=== PATIENT | male | born 1950 | race Caucasian/White ===

== ENCOUNTER 2020-10-07 12:14 | Emergency (ER) | payer MEDICARE, BC ==
[~2020-10-07] VITALS: Ht 185.4 cm; Wt 101.7 kg
[2020-10-07 12:22] VITALS: BP 150/81
[2020-10-07] MEDS ORDERED: LIDOcaine 1% 30ml preserv. free vial ONE (18:00)
== END 2020-10-07 14:37 | disposition home or self-care (01) ==
LOC: ER 12:15
DX: S61.412A Laceration without foreign body of left hand, initial encounter (principal); I10 Essential (primary) hypertension; Z98.890 Other specified postprocedural states; W22.8XXA Striking against or struck by other objects, initial encounter; Y93.89 Activity, other specified; Y92.89 Other specified places as the place of occurrence of the external cause; Y99.8 Other external cause status
CPT/HCPCS: 12001; 73140; 99283; J2001

== ENCOUNTER 2020-11-23 20:09 | Emergency (ER) | payer BC, MEDICARE ==
[~2020-11-23] VITALS: Ht 185.4 cm; Wt 102.5 kg
[2020-11-23] MEDS ORDERED: acetaminophen 325mg tablet PO ONE (22:10)
[2020-11-23 22:44] VITALS: BP 133/87
== END 2020-11-23 22:47 | disposition home or self-care (01) ==
LOC: ER 20:10
DX: R07.89 Other chest pain (principal); I10 Essential (primary) hypertension; Z98.890 Other specified postprocedural states
CPT/HCPCS: 71045; 93005; 99283

== ENCOUNTER 2021-02-10 13:18 | Inpatient (IN) | payer MEDICARE, BC ==
[~2021-02-10] VITALS: Ht 185.4 cm; Wt 102.8 kg
[2021-02-10] MEDS: heparin 25,000 UNIT/250ml bag 250 ML IV SCH (14:50)
[2021-02-10] MEDS ORDERED: heparin 10,000 units/1 ML INJ IV ONE ×2 (14:50)
[2021-02-10] MEDS ORDERED: heparin 10,000 units/1 ML INJ IV PRN (14:50)
[2021-02-10] MEDS ORDERED: iohexol 350MG/ML 100ml bottle IV ONE (14:53)
[2021-02-10 15:08] LABS: BASOPHILS % (AUTO) 0.3 % (0-1); EOSINOPHILS % (AUTO) 0.5 % (0-6); HEMOGLOBIN 13.6 g/dl (14.0-17.9); LYMPHOCYTES # (AUTO) 1.2 X10'3 (1.1-4.8); LYMPHOCYTES % (AUTO) 15.8 % (21-51); MEAN CORPUSCULAR HEMOGLOBIN 29.7 PG (27.0-31.0); MEAN CORPUSCULAR HGB CONC 33.3 g/dL (33.0-36.5); MEAN CORPUSCULAR VOLUME 89.3 FL (78-98); MEAN PLATELET VOLUME 7.8 FL (7.4-10.4); MONOCYTES # (AUTO) 0.5 X10'3 (0-0.9); MONOCYTES % (AUTO) 6.7 % (2-12); NEUTROPHILS # (AUTO) 5.9 X10'3 (1.8-7.7); NEUTROPHILS % (AUTO) 76.7 % (42-75); PLATELET COUNT 218 X10'3 (140-440); RED BLOOD COUNT 4.59 X10'6 (4.70-6.10); RED CELL DISTRIBUTION WIDTH 15.1 % (11.5-14.5); WHITE BLOOD COUNT 7.8 X10'3 (4.5-11.0)
[2021-02-10 15:22] LABS: ALANINE AMINOTRANSFERASE 22 U/L (12-78); ALBUMIN 3.6 G/DL (3.4-5.0); ALKALINE PHOSPHATASE 91 IU/L (46-116); ANION GAP 10 (8-16); ASPARTATE AMINO TRANSFERASE 15 U/L (10-37); BILIRUBIN,TOTAL 0.5 MG/DL (0.1-1.0); BLOOD UREA NITROGEN 18 MG/DL (7-18); BUN/CREATININE RATIO 18.8 (5.4-32.0); CALCIUM 8.6 MG/DL (8.5-10.1); CHLORIDE 109 MMOL/L (99-107); CREATININE 0.96 MG/DL (0.60-1.10); GLUCOSE 94 MG/DL (70-104); POTASSIUM 4.3 MMOL/L (3.5-5.1); SODIUM 146 MMOL/L (135-145); TOTAL CARBON DIOXIDE 27.1 MMOL/L (24-32); TOTAL PROTEIN 7.2 G/DL (6.4-8.2); eGFR 78 ML/MIN
[2021-02-10] MEDS ORDERED: LOSA100T57 PO (16:49)
[2021-02-10] MEDS ORDERED: METO-411 PO (16:49)
[2021-02-10] MEDS ORDERED: FLO0.4C PO (16:49)
[2021-02-10] MEDS ORDERED: AMLO5TAB16 PO (16:49)
[2021-02-10] MEDS ORDERED: SILD100T70 PO (16:51)
[2021-02-10] MEDS ORDERED: ondansetron/PF 4mg/2ml inj IV PRN (17:00)
[2021-02-10] MEDS ORDERED: morphine 2 MG/ML inj. syringe IV PRN ×2 (17:00)
[2021-02-10] MEDS ORDERED: magnesium hydroxide 30ml (MOM) UD suspension PO PRN (17:00)
[2021-02-10] MEDS: normal saline 1000ml 1,000 ML IV SCH (17:00)
[2021-02-10] MEDS ORDERED: mag hydrox/Alum hydrox/simeth 30ml oral suspension PO PRN (17:00)
[2021-02-10] MEDS ORDERED: SILDENAFIL CITRATE PO PRN (17:50)
[2021-02-10] MEDS: tamsulosin 0.4mg capsule PO SCH (18:40)
[2021-02-10] MEDS: docusate sod 100mg capsule PO SCH (19:37)
--- NOTE | 2021-02-10 21:58 | NUR ---
PTT ON HOLD. PTT >139. DR THOMPSON NOTIFIED. WILL ORDER 2 HR PTT ONCE REDUCED GTT IS STERTED.
[2021-02-11] VITALS (14 sets, daily range): BP systolic 111–159; BP diastolic 62–104
[2021-02-11 02:39] LABS: BASOPHILS % (AUTO) 0.4 % (0-1); EOSINOPHILS # (AUTO) 0.1 X10'3 (0-0.9); HEMOGLOBIN 13.4 g/dl (14.0-17.9); MEAN PLATELET VOLUME 8.2 FL (7.4-10.4); MONOCYTES # (AUTO) 0.6 X10'3 (0-0.9); NEUTROPHILS % (AUTO) 67.2 % (42-75)
[2021-02-11 02:40] LABS: EOSINOPHILS % (AUTO) 1.9 % (0-6); HEMATOCRIT 40.8 % (42.0-52.0); LYMPHOCYTES # (AUTO) 1.5 X10'3 (1.1-4.8); LYMPHOCYTES % (AUTO) 22.1 % (21-51); MEAN CORPUSCULAR HEMOGLOBIN 29.4 PG (27.0-31.0); MEAN CORPUSCULAR HGB CONC 32.9 g/dL (33.0-36.5); MEAN CORPUSCULAR VOLUME 89.5 FL (78-98); MONOCYTES % (AUTO) 8.4 % (2-12); NEUTROPHILS # (AUTO) 4.6 X10'3 (1.8-7.7); PLATELET COUNT 201 X10'3 (140-440); RED BLOOD COUNT 4.56 X10'6 (4.70-6.10); WHITE BLOOD COUNT 6.8 X10'3 (4.5-11.0)
[2021-02-11 02:47] LABS: ALBUMIN 3.2 G/DL (3.4-5.0); ANION GAP 9 (8-16); BLOOD UREA NITROGEN 17 MG/DL (7-18); BUN/CREATININE RATIO 19.5 (5.4-32.0); CALCIUM 8.2 MG/DL (8.5-10.1); CHLORIDE 111 MMOL/L (99-107); CREATININE 0.87 MG/DL (0.60-1.10); GLUCOSE 96 MG/DL (70-104); POTASSIUM 3.5 MMOL/L (3.5-5.1); SODIUM 146 MMOL/L (135-145); TOTAL CARBON DIOXIDE 26.3 MMOL/L (24-32); eGFR 87 ML/MIN
[2021-02-11] MEDS: normal saline 1000ml 1,000 ML IV SCH ×3 (03:14→22:11)
[2021-02-11] MEDS: heparin 25,000 UNIT/250ml bag 250 ML IV SCH ×3 (04:00→19:08)
[2021-02-11] MEDS ORDERED: losartan 50mg tablet PO SCH ×2 (08:00→20:00)
[2021-02-11] MEDS ORDERED: metoprolol succinate 25mg (24-HOUR) SR. Tablet PO SCH ×2 (08:00→20:00)
[2021-02-11] MEDS ORDERED: amLODIPine 5mg tablet PO SCH ×2 (08:00→20:00)
[2021-02-11] MEDS: docusate sod 100mg capsule PO SCH ×2 (08:00→22:06)
[2021-02-11] MEDS: tamsulosin 0.4mg capsule PO SCH (08:00)
[2021-02-11] MEDS ORDERED: midazolam 1 mg/ML 2ml injection ONE ×3 (09:41→11:22)
[2021-02-11] MEDS ORDERED: LIDOcaine 1%/PF 5ML 10 MG/ML VIAL ONE (09:41)
[2021-02-11] MEDS ORDERED: iohexol 300mg/ml 100ml inj. ONE (09:42)
[2021-02-11] MEDS ORDERED: fentaNYL/PF 50MCG/1 ML 2ML syringe ONE ×2 (09:42→11:04)
[2021-02-11] MEDS ORDERED: heparin 1,000 UNITS/NS 500ml 500 ML ONE (09:42)
--- NOTE | 2021-02-11 10:13 | NUR ---
0800 medications held until after surgery
[2021-02-11] MEDS ORDERED: ondansetron/PF 4mg/2ml inj ONE ×2 (10:26→12:46)
[2021-02-11] MEDS ORDERED: diphenhydrAMINE 50 mg/ml inj ONE (10:27)
[2021-02-11] MEDS ORDERED: heparin 1,000unit/ml 10ml vial 10 ML ONE (10:57)
[2021-02-11] MEDS ORDERED: protamine sulfate 10mg/ml inj. ONE (12:06)
--- NOTE | 2021-02-11 13:22 | NUR ---
Dr. Felipe will: Blayne Herron [id number]: Pt just arrived to floor. [id number]
--- NOTE | 2021-02-11 15:59 | NUR ---
Dr. Wang pagegaurav: Blayne Herron [id number]: Critical PTT 130. will stop heparin gtt per protocol for 120min. [id number]
--- NOTE | 2021-02-11 18:01 | NUR ---
Dr. Wang paged: Blayne Herron [id number]: Pt would like to take BP meds tonight. Can they be changed to 1999? [id number]
[2021-02-11] MEDS: acetaminophen 325mg tablet PO PRN (22:09)
[2021-02-12 02:00] VITALS: BP 98/46
[2021-02-12 03:03] LABS: BASOPHILS % (AUTO) 0.3 % (0-1); EOSINOPHILS # (AUTO) 0.1 X10'3 (0-0.9); EOSINOPHILS % (AUTO) 1.4 % (0-6); HEMATOCRIT 38.4 % (42.0-52.0); HEMOGLOBIN 12.8 g/dl (14.0-17.9); LYMPHOCYTES # (AUTO) 1.3 X10'3 (1.1-4.8); LYMPHOCYTES % (AUTO) 18.8 % (21-51); MEAN CORPUSCULAR HEMOGLOBIN 29.6 PG (27.0-31.0); MEAN CORPUSCULAR HGB CONC 33.3 g/dL (33.0-36.5); MEAN PLATELET VOLUME 8.1 FL (7.4-10.4); MONOCYTES # (AUTO) 0.5 X10'3 (0-0.9); MONOCYTES % (AUTO) 7.5 % (2-12); NEUTROPHILS # (AUTO) 4.8 X10'3 (1.8-7.7); PLATELET COUNT 188 X10'3 (140-440); RED BLOOD COUNT 4.31 X10'6 (4.70-6.10); RED CELL DISTRIBUTION WIDTH 15.2 % (11.5-14.5); WHITE BLOOD COUNT 6.7 X10'3 (4.5-11.0)
[2021-02-12 03:15] LABS: ALBUMIN 2.9 G/DL (3.4-5.0); ANION GAP 7 (8-16); BLOOD UREA NITROGEN 15 MG/DL (7-18); CALCIUM 8.1 MG/DL (8.5-10.1); CHLORIDE 111 MMOL/L (99-107); CREATININE 0.94 MG/DL (0.60-1.10); GLUCOSE 92 MG/DL (70-104); POTASSIUM 3.7 MMOL/L (3.5-5.1); SODIUM 145 MMOL/L (135-145); TOTAL CARBON DIOXIDE 27.2 MMOL/L (24-32); eGFR 80 ML/MIN
[2021-02-12] MEDS: heparin 25,000 UNIT/250ml bag 250 ML IV SCH (03:41)
[2021-02-12] MEDS: acetaminophen 325mg tablet PO PRN (05:04)
--- NOTE | 2021-02-12 06:21 | NUR ---
Problems reprioritized. Patient report given, questions answered & plan of care reviewed with Colleen.
--- NOTE | 2021-02-12 06:52 | NUR ---
Patient in room PCU 3022. I have received report from Radha STEWART and had the opportunity to ask questions and assume patient care. Pt supine in bed, alert and oriented, verbalizing needs, denies pain. safety measures in place. safety education completed. pt's goal to go home today. no s/sx acute distress.
[2021-02-12 07:18] VITALS: BP 125/53
[2021-02-12] MEDS ORDERED: APIX5TAB3 PO (09:31)
--- NOTE | 2021-02-12 10:18 | NUR ---
Called pharmacist regarding megestrol acetate and PPE as well as subtherapeutic dosing. pharmacist to send up required PPE for administration. Dr. Shaffer on the floor at this time. will discuss dosing. Addendum: 02/12/21 at 1020 by Penny Amaya RN above note documented in error. please disregard.
[2021-02-12 11:00] VITALS: BP 129/62
--- NOTE | 2021-02-12 11:05 | NUR ---
Pt stable for discharge per MD order. All discharge instructions thoroughly explained to pt, then reiterated when spouse present, all questions answered. new rx e scripted to [facility]. written and verbal education completed secondary to eloquis. pt verbalized understanding. PIV discontinued. cannula intact. vehicle monitor technician discontinued. pt without sob or s/sx acute distress. pt and and this nurse ambulated to [facility] where pt left in private vehicle. no s/sx distress at discharge.
== END 2021-02-12 11:06 | disposition home or self-care (01) | DRG 271 ==
LOC: ER 13:18 → ED HOLD 17:00 → PCU 3S 02-11 13:10
PROVIDERS: ADMIT Family Medicine; ATTEND Family Medicine
PROC: B32T1ZZ Computerized Tomography (CT Scan) of Left Pulmonary Artery using Low Osmolar Contrast (ICD-10-PCS; 2021-02-10)
PROC: B3201ZZ Computerized Tomography (CT Scan) of Thoracic Aorta using Low Osmolar Contrast (ICD-10-PCS; 2021-02-10)
PROC: B32S1ZZ Computerized Tomography (CT Scan) of Right Pulmonary Artery using Low Osmolar Contrast (ICD-10-PCS; 2021-02-10)
PROC: BW211ZZ Computerized Tomography (CT Scan) of Abdomen and Pelvis using Low Osmolar Contrast (ICD-10-PCS; 2021-02-10)
PROC: 06CC3ZZ Extirpation of Matter from Right Common Iliac Vein, Percutaneous Approach (ICD-10-PCS; principal; 2021-02-11)
PROC: 06C03ZZ Extirpation of Matter from Inferior Vena Cava, Percutaneous Approach (ICD-10-PCS; 2021-02-11)
PROC: B51D1ZZ Fluoroscopy of Bilateral Lower Extremity Veins using Low Osmolar Contrast (ICD-10-PCS; 2021-02-11)
PROC: B5191ZZ Fluoroscopy of Inferior Vena Cava using Low Osmolar Contrast (ICD-10-PCS; 2021-02-11)
DX: I82.220 Acute embolism and thrombosis of inferior vena cava (principal); I82.421 Acute embolism and thrombosis of right iliac vein; N28.1 Cyst of kidney, acquired; Z20.822 Contact with and (suspected) exposure to COVID-19; I72.3 Aneurysm of iliac artery; I10 Essential (primary) hypertension; Z92.3 Personal history of irradiation; Z86.73 Personal history of transient ischemic attack (TIA), and cerebral infarction without residual deficits; Z85.46 Personal history of malignant neoplasm of prostate
CPT/HCPCS: 36005; 36010; 36415; 37187; 71275; 74177; 75820; 76937; 80048; 80053; 85025; 85347; 85610; 85730; 87081; 87635; 93306; 93970; 96365; 96366; 96376; 99152; 99153; 99285; A6213; C1757; C1769; C1894; G0378; J1200; J1644; J2250; J2405; J2720; J3010; J7030; Q9967

== ENCOUNTER 2025-04-28 12:27 | Emergency (ER) | payer MEDICARE, BC ==
[~2025-04-28] VITALS: Ht 188 cm; Wt 99.9 kg
[~2025-04-28 12:27] MED LIST: AMLO5TAB16 PO; APIX5TAB3 PO; LOSA100T58 PO; METO-411 PO; SILD100T70 PO
[2025-04-28 13:04] VITALS: TEMP 97.8
[2025-04-28 13:21] LABS: MEAN PLATELET VOLUME 8.4 FL (7.4-10.4); RED CELL DISTRIBUTION WIDTH 14.6 % (11.5-14.5)
[2025-04-28 13:35] LABS: CREATININE 1.03 MG/DL (0.60-1.10); TOTAL CARBON DIOXIDE 30.7 MMOL/L (24-32); eCRCL 74 ML/MIN; eGFR 71 ML/MIN
--- NOTE | 2025-04-28 16:19 | Physician Documentation ---
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 Feels a little lightheaded, denies LOC. Not intentional. Denies chest pain, fevers, N/V/D. Medication Reconciliation Allergies: Coded Allergies: No Known Allergies (Unverified , 04/28/25) Scheduled Amlodipine Besylate (Amlodipine Besylate), 1 TAB PO DAILY, (Reported) Losartan Potassium (Losartan Potassium), 1 TAB PO DAILY, (Reported) Metoprolol Succinate (Metoprolol Succinate), 1 TAB PO DAILY, (Reported) Scheduled PRN Sildenafil Citrate (Sildenafil Citrate), 0.5 TAB PO DAILY PRN for PLEASURE, (Reported) Discontinued Medications Apixaban (Eliquis), 5 MG PO BID Discontinued Reason: completed med therapy Past Medical History Past Medical History: Hypertension Past Surgical History: orthopedic surgeries Alcohol Use: Rarely Drug Use: none Lives with: Spouse Lives In: Home Review of Systems All Other Systems at this time: Reviewed and Negative Physical Exam Vital Signs: RN Vital Signs have been reviewed: Yes, Temperature: 97.8, Source: Temporal, Heart Rate: 72, Respiratory Rate: 14, BP: 125/66, Pulse Oximetry: 97, Weight: 99.900 Oxygen Flow Rate: 0 Physical Exam Gen: no distress HEENT: PERRL, EOMI Pulm: no distress CTAB CV: RRR m/c/r Abd: deferred MSK: no deformity Skin: w/d/i Neuro: nonfocal Psych: unremarkable Progress Results/Orders Results/Orders Orders - JIM STOCK MD Electrocardiogram (04/28/25 ) Completed Orders - JIM STOCK MD Cbc/Diff (04/28/25 12:47) CMP (04/28/25 12:47) Vital Signs 04/28/25 04/28/25 04/28/25 04/28/25 12:35 13:04 13:05 14:00 Temp 98.4 97.8 Pulse 88 79 72 Resp 18 20 20 16 B/P (MAP) 148/90 139/72 (94) 133/79 (97) Pulse Ox 99 97 97 O2 Flow Rate 0 0 0 04/28/25 04/28/25 14:46 16:27 Pulse 72 71 Resp 14 16 B/P (MAP) 125/66 (85) 139/73 Pulse Ox 97 96 O2 Flow Rate 0 Laboratory Tests Test 04/28/25 13:00 White Blood Count 5.7 Red Blood Count 5.05 Hemoglobin 15.3 Hematocrit 45.2 Mean Corpuscular Volume 89.4 Mean Corpuscular Hemoglobin 30.3 Mean Corpuscular Hemoglobin Concent 33.9 Red Cell Distribution Width 14.6 H Platelet Count 210 Mean Platelet Volume 8.4 Neutrophils (%) (Auto) 61.5 Lymphocytes (%) (Auto) 30.0 Monocytes (%) (Auto) 6.2 Eosinophils (%) (Auto) 1.9 Basophils (%) (Auto) 0.4 Neutrophils # (Auto) 3.5 Lymphocytes # (Auto) 1.7 Monocytes # (Auto) 0.4 Eosinophils # (Auto) 0.1 Basophils # (Auto) 0.0 CBC Comment Sodium Level 145 Potassium Level 4.5 Chloride Level 109 H Carbon Dioxide Level 30.7 Anion Gap 5 L Blood Urea Nitrogen 24 H Creatinine 1.03 Estimated GFR/1.73 m2 71 BUN/Creatinine Ratio 23.3 H Glucose Level 113 H Calcium Level 8.7 Total Bilirubin 0.8 Aspartate Amino Transf (AST/SGOT) 16 Alanine Aminotransferase (ALT/SGPT) 17 Alkaline Phosphatase 97 Total Protein 7.5 Albumin 3.7 Globulin 3.8 Albumin/Globulin Ratio 1.0 L Chemistry Comments Medical Decision Making Additional information obtaine: N/A Findings 74 year old male with accidental overdose of amlodipine. Poison control recommended observation period, labs. Patient maintained bp, well-appearing on reevaluation, asymptomatic. Discharged with return precautions and medication management advice. Differential Dx:Considerations: Include: Alcohol abuse, Delirium, Depression, Drug Overdose-Accidental, Encephalopathy, Substance abuse, Suicidal attempt, Suidical gesture Departure Disposition: HOME / SELF CARE / HOMELESS ( ) Impression: Primary Impression: Accidental overdose Condition: Stable Discharge Instructions: Accidental Drug Poisoning, Adult Referrals: NO PRIMARY CARE PROVIDER (PCP) Education Educated: Patient Educated regarding: diagnosis, treatment, prognosis, need for follow up Signature Scribe Signature: . Attestation: . JIM STOCK MD Apr 28, 2025 16:19
[2025-04-28 16:27] VITALS: BP 139/73; PULSE 71; RESP 16; O2SAT 96
--- NOTE | 2025-04-29 06:01 | ELECTROCARDIOGRAPH REPORT ---
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 Octavio Lindsey Measurements Intervals [place] Rate: 72 P: 59 NM: 213 QRS: 15 QRSD: 90 T: 56 QT: 395 QTc: 433 Interpretive Statements Sinus rhythm Multiple premature complexes, vent & supraven Borderline prolonged NM interval Baseline wander in lead(s) V4,V6 Electronically Signed On 04-29-2025 6:18:[address] Octavio Lindsey Please click the below link to view image of tracing.
== END 2025-04-28 16:28 | disposition home or self-care (01) ==
LOC: ER 12:28
DX: T50.901A Poisoning by unspecified drugs, medicaments and biological substances, accidental (unintentional), initial encounter (principal); I10 Essential (primary) hypertension; Y92.89 Other specified places as the place of occurrence of the external cause
CPT/HCPCS: 36415; 80053; 85025; 93005; 99285